=== PATIENT | male | born 1940 | race Caucasian/White ===

== ENCOUNTER 2017-05-12 09:18 | Outpatient (CLI) | payer MEDICARE ==
--- NOTE | ~2017-05-12 | HEMODYNAMI ---
PATIENT:ALMA GRANT CHRISTIAN MEDICAL RECORD: [id number] : 38 LOCATION:[facility] ADMISSION DATE: 05/12/17 Generatedon:05/12/201712:40 Patient name: ALMA GRANT Patient #: [id number] SSN: : [id number] Date of study: 05/12/2017 Page: Of Hemodynamic Procedure Report Patient Data Patient Demographics Procedure consent was obtained First Name: ALMA Gender: Male Last Name: JUANITA : 1940 [facility] Initial: CHRISTIAN Age: 77 year(s) Patient #: [id number] Race: Additional ID: [id number] Contact details Address: [address] [place] [address] State: [place] City: [place] Zip code: [address] Past Medical History History of disease Date Diagnosis Comments CAD CHF->RODRÍGUEZ Allergies: No known allergies Admission Admission Data Admission Date: 05/12/2017 Admission Time: 9:18 Procedure Procedure Types Cath Procedure Diagnostic Procedure LHC LHC w/Coronaries PCI Procedure SVG-BMS/JUICE Initial Procedure Description Procedure Date Procedure Date: 05/12/2017 Procedure Start Time: 12:11 Procedure End Time: 12:39 Procedure Staff Name Function Clyde Styles MD Performing Physician Edgar Banuelos RT Scrub Ab Quinn RN Nurse Gabriel Phipps RT Monitor Procedure Data Cath Procedure Fluoroscopy Diagnostic fluoroscopy Total fluoroscopy Time: time: 10.2 min 10.2 min Diagnostic fluoroscopy Total fluoroscopy dose: dose: 1083 mGy 1083 mGy Contrast Material Contrast Material Type Amount (ml) Isovue 300 127 Entry Location Entry Primary Successful Side Size Upsize Upsize Entry Closure Succes sful Closure Location (Fr) 1 (Fr) 2 (Fr) Remarks Device Remarks Femoral Right 5 Fr 6 Fr Exoseal artery Short Estimated blood loss: 10 ml Diagnostic catheters Device Type Used For End Catheter Placement Cordis 5Fr Pigtail Procedure Catheter (MP) Cordis 5Fr JL 4.0 Procedure Catheter (MP) Cordis 5Fr 3DRC Catheter Procedure (MP) Diagnostic Infinity 5Fr Procedure AR 2 MOD catheter Procedure Medications Medication Administration Route Dosage Oxygen NC 2 l/min Lidocaine 2% added to field 20 Heparin Flush Bag added to field 2 bags (1000units/500ml NS) 0.9% NaCl I.V. 100 ml/hr Versed I.V. 1 mg Fentanyl I.V. 50 mcg Versed I.V. 1 mg Fentanyl I.V. 50 mcg Heparin Bolus I.V. 4000 units Hemodynamics Rest Heart Rate: 59 (bpm) Pressure Samples Time Site Value (mmHg) Purpose Heart Use Rate(bpm) 12:11 LV 126/27,27 Snapshot 66 Snapshots Pre Cath Intra NCS Post Cath Vital Signs Time Heart Resp SPO2 NIBP (mmHg) Rhythm Pain Sedation Rate (ipm) (%) Status Level (bpm) 12:07:17 65 21 94 134/67(114) NSR 0 (11) 10(A) , No pain 12:13:16 64 19 92 134/74(113) NSR 0 (11) 10(A) , No pain 12:17:28 68 16 94 135/71(109) NSR 0 (11) 9(A) , No pain 12:21:44 68 15 94 131/57(108) NSR 0 (11) 9(A) , No pain 12:27:14 65 15 95 139/57(106) NSR 0 (11) 9(A) , No pain 12:31:30 65 15 97 137/65(114) NSR 0 (11) 9(A) , No pain 12:34:53 63 18 96 130/64(115) NSR 0 (11) 10(A) , No pain 12:39:06 63 23 98 135/62(113) NSR 0 (11) 10(A) , No pain Medications Time Medication Route Dose Verified Delivered Reason Notes Effectiveness by by 12:04:31 Oxygen NC 2 Clyde Berger used for l/min Jensen Quinn RN procedure 12:04:39 Lidocaine 2% added 20ml Clyde Tang for local to vial Jensen Styles MD anesthetic field 12:04:45 Heparin Flush added 2 Clyde Tang used for Bag to bags Jensen Styles MD procedure (1000units/500ml field NS) 12:04:53 0.9% NaCl I.V. 100 Clyde Buffie Per physician ml/hr Jensen Quinn RN 12:09:14 Versed I.V. 1 mg Clyde Berger for sedation Jensen Quinn RN 12:09:19 Fentanyl I.V. 50 Clyde Berger for sedation mcg Jensen Quinn RN 12:16:06 Versed I.V. 1 mg Clyde Berger for sedation Jensen Quinn RN 12:16:14 Fentanyl I.V. 50 Clyde Berger for sedation mcg Jensen Quinn RN 12:17:59 Heparin Bolus I.V. 4000 Clyde Berger for verifi ed units Jensen Quinn RN anticoagulation with dr styles Procedure Log Time Note 11:49:05 Informed consent obtained and on chart 11:49:10 Diagnostic Cath Status : Elective 11:50:01 Gabriel Phipps RT(R) (CV) sent for patient. Start room use. 11:50:03 Time tracking: Regular hours 11:50:08 Plan of Care:Hemodynamics will remain stable., Cardiac rhythm will remain stable., Comfort level will be maintained., Respiratory function will remain adequate., Patient/ family verbilizes understanding of procedure., Procedure tolerated without complication., Recovers from procedure without complications.. 12:01:27 Warm blankets applied, and fouzia hugger turned on for patient comfort. 12:01:28 Correct patient and procedure confirmed by team. 12:01:39 ECG and BP/O2 sat monitors applied to patient. 12:02:28 Baseline sample Acquired. 12:02:41 Rhythm: sinus rhythm 12:02:52 Full Disclosure recording started 12:04:05 H&P Date Dictated: 05/11/2017 Within 30 days and on chart., H&P Addendum completed by physician on day of procedure. (MUST COMPLETE FOR ALL OUTPATIENTS). 12:04:07 Pre-procedure instructions explained to patient. 12:04:07 Pre-op teaching completed and patient verbalized understanding. 12:04:11 Family in waiting room. 12:04:13 Patient NPO since Midnight. 12:04:31 Oxygen 2 l/min NC was administered by Ab Quinn RN; used for procedure; 12:04:39 Lidocaine 2% 20ml vial added to field was administered by Clyde Styles MD; for local anesthetic; 12:04:45 Heparin Flush Bag (1000units/500ml NS) 2 bags added to field was administered by Clyde Styles MD; used for procedure; 12:04:53 0.9% NaCl 100 ml/hr I.V. was administered by Ab Quinn RN; Per physician; 12:06:05 Patient allergic to No known allergies 12:06:08 Is patient on blood thinner?Yes 12:06:13 ACC The patient was administered the following blood thiners within the last 24 hours: ACCPlavix 12:06:16 Patient diabetic? No. 12:06:19 ----Pre-sedation anethsthesia assessment.---- 12:06:21 Previous problem with sedation/anesthesia? No ? 12:06:23 Snore? Yes 12:06:25 Sleep apnea? No 12:06:26 Deviated septum? No 12:06:27 Opens mouth fully? Yes 12:06:28 Sticks out tongue? Yes 12:06:32 Airway obstruction? No ? 12:06:41 Dentures? Yes PARTIAL IN 12:06:45 Pre procedure: right dorsailis pedis pulse 1+ Palpable, but thready & weak; easily obliterated 12:07:00 IV patent on arrival in left hand with 0.9% NaCl at [facility]. 12:07:56 Right groin area was prepped with chlora-prep and draped in sterile fashion 12:08:07 Alarms reviewed by R. N. 12:08:07 Sharps counted by scrub and verified by R.N. 12:08:09 Physician arrived 12:08:09 --------ALL STOP TIME OUT------ 12:08:10 Final Timeout: patient, procedure, and site verified with staff and physician. All members of the team are in agreement. 12:08:12 Right groin site verified by team. 12:08:15 Physical assessment completed. ASA score P 2 - A patient with mild systemic disease as per Clyde Styles MD. 12:08:19 Sedation plan: IV Moderate Sedation Versed, Fentanyl 12:08:36 Use device set Femoral Dx 12:08:37 Acist Syringe opened to sterile field. 12:08:38 Bag Decanter opened to sterile field. 12:08:39 Medline Cath Pack opened to sterile field. 12:08:39 Terumo 5Fr Cecilia Sheath opened to sterile field. 12:08:40 St Feliz 260cm J .035 wire opened to sterile field. 12:08:41 Acist Hand Control opened to sterile field. 12:08:42 Acist Manifold opened to sterile field. 12:08:43 Diagnostic Infinity 5Fr Multipack catheter opened to sterile field. 12:08:45 Tegaderm 4 x 4 opened to sterile field. 12:08:48 Zero performed for pressure channel P1 12::14 Versed 1 mg I.V. was administered by Ab Quinn RN; for sedation; 12::16 Local anesthetic to right femoral artery with Lidocaine 2% by Clyde Styles MD.INITIAL ACCESS ONLY 12:09:19 Fentanyl 50 mcg I.V. was administered by Ab Quinn RN; for sedation; 12:09:30 A 5 Fr sheath was inserted into the Right Femoral artery 12:10:00 Vital chart was started 12:10:33 A Cordis 5Fr Pigtail Catheter (MP) was advanced over the wire and used for Procedure. 12:11:17 Procedure started. 12:11:28 LV hemodynamics recorded. 12:11:30 LV gram done using BAKER 12:11:35 EF : 20 % 12:11:36 Catheter removed. 12:11:58 A Cordis 5Fr JL 4.0 Catheter (MP) was advanced over the wire and used for Procedure. 12:12:16 LCA angiography performed. 12:12:25 Catheter removed. 12:13:19 A Cordis 5Fr 3DRC Catheter (MP) was advanced over the wire and used for Procedure. 12:13:35 SHAFER to LAD angiography performed. 12:14:00 RCA angiography performed. 12:14:10 Catheter removed. 12:14:42 A Diagnostic Infinity 5Fr AR 2 MOD catheter was advanced over the wire and used for Procedure. 12:15:06 SVG to RCA angiography performed. 12:16:06 Versed 1 mg I.V. was administered by Ab Quinn RN; for sedation; 12:16:14 Fentanyl 50 mcg I.V. was administered by Ab Quinn RN; for sedation; 12:16:20 SVG to Diag angiography performed. 12:16:42 SVG TO DIAG AND OM 12:17:28 Catheter removed. 12:17:31 Proceeding to intervention. 12:17:53 Terumo 6Fr Cecilia Sheath opened to sterile field. 12:17:54 Sandoval Whisper J 300cm 0.014 guide wire opened to sterile field. 12:17:55 Handy BasixCompak Inflation Kit opened to sterile field. 12:17:59 Heparin Bolus 4000 units I.V. was administered by Ab Quinn RN; for anticoagulation; verified with dr styles 12:18:17 Procedure type changed to Cath procedure, Diagnostic procedure, LHC, LHC w/Coronaries, PCI procedure, SVG-BMS/JUICE Initial 12:18:28 Sheath upsized to a 6 Fr Short. 12:18:53 Medtronic Launcher 6Fr AR 2.0 guide catheter opened to sterile field. 12:19:03 6 Fr AR 2 guide catheter was inserted over the wire 12:19:28 WHISPER wire advanced. 12:19:35 Wire advanced across lesion. 12:23:09 Wire removed. 12:23:19 Guide Catheter removed. unable to get back-up support 12:23:32 Medtronic Launcher 6Fr AR 1.0 guide catheter opened to sterile field. 12:23:40 6 Fr AR 1 guide catheter was inserted over the wire 12:25:21 Wire advanced across lesion. 12:27:56 Inflation number: 1 A NC Euphora 4.0 x 15 balloon was prepped and advanced across the Aorta Left -> 1st Diag, then inflated to 17 CHEL for 0:10 (min:sec). 12:30:38 Balloon removed over the wire. 12:30:39 Wire removed. 12:30:40 Guide catheter removed. 12:31:12 Cordis 6Fr Exoseal opened to sterile field. 12:31:23 Sheath removed intact; hemostasis achieved with Exoseal to the Right Femoral artery. 12:31:25 Procedure ended.(Physican Out) 12:31:42 Fluoroscopy time 10.20 minutes. 12::48 Fluoroscopy dose: 1083 mGy 12:31:48 Flurop Dose total: 1083 12:31:55 Contrast amount:Isovue 300 127ml. 12:32:11 Sharps counted by scrub and verified by R.N. 12:38:12 Insertion/operative site no bleeding no hematoma. 12:38:16 Post-op/insertion site Right Femoral artery dressed using a 4 x 4 and Tegaderm. 12:38:33 Post right femoral artery:stable 12:38:36 Post Procedure Pulses reassessed and unchanged 12:38:43 Post-procedure physical assessment completed. ASA score P 2 - A patient with mild systemic disease as per Clyde Styles MD. 12:38:51 Post procedure rhythm: sinus rhythm 12:38:54 Estimated blood loss: 10 ml 12:38:55 Post procedure instruction explained to patient.Patient verbalizes understanding. 12:38:56 Patient needs reinforcement of post procedure teaching. 12:38:57 Procedure and supply charges have been captured, reviewed, submitted and are correct. 12:38:59 Vital chart was stopped 12:39:00 See physician's report for complete and final results. 12:39:02 Report given to PCU. 12:39:08 Patient transfered to PCU with Bed. 12:39:16 Procedure ended. 12:39:16 Full Disclosure recording stopped 12:39:22 End room use (Document Last) Intervention Summary Intervention Notes Time ActionType Lesion and Equipment Action# Pressure Duration Attributes Used 12:27:56 Inflate Aorta Left NC 1 17 00:10 balloon -> 1st Diag Euphora 4.0 x 15 balloon Device Usage Item Name Manufacture Quantity Catalog Hospital Part Current Minimal Lot# / Number Charge Number Stock Stock Serial# Code Acist Acist 1 [id number] [id number] 063314 982260 20 Syringe Medical Systems Inc Bag Microtek 1 [id number] [id number] 35468 297446 5 Decanter Medical Inc. Medline Cardinal 1 [id number] 148986 72756 987911 5 Cath Pack Health Terumo 5Fr Terumo 1 [id number] 135599 241574 214056 [address] [facility] St Feliz 1 755986 857198 854227 287479 30 260cm J .035 wire Acist Hand Acist 1 55772 065673 803648 412093 5 Control Medical Systems Inc Acist Acist 1 12447 652460 839851 519427 5 Manifold Medical Systems Inc Diagnostic Cardinal 1 [id number] 159712 67345 729069 30 PageBitesity [place] 5Fr Multipack catheter Tegaderm 4 3M 1 1626W 183482 371048 573490 5 x 4 Cordis 5Fr Cardinal 1 082249 5 Pigtail Health Catheter (MP) Cordis 5Fr Cardinal 1 304849 5 JL 4.0 Health Catheter (MP) Cordis 5Fr Cardinal 1 686440 5 3DRC Health Catheter (MP) Diagnostic Cardinal 1 [id number] 691405 521696 751973 20 StoredIQ Health 5Fr AR 2 MOD catheter Terumo 6Fr Terumo 1 [id number] 343369 483320 354062 40 Cecilia Sheath Sandoval Sandoval 1 [id number] 581519 691598 665580 5 isper J Vascular 300cm 0.014 guide wire Merit Merit 1 [id number] 773234 198273 185154 15 Prolong PharmaceuticalsixIntellihot Green TechnologiespaAlphaSmart Medical Inflation Kit Medtronic Medtronic 1 [id number] 789784 76374 210024 1 Launcher 6Fr AR 2.0 guide catheter Medtronic Medtronic 1 [id number] 605931 33396 194654 1 Launcher 6Fr AR 1.0 guide catheter NC Euphora Medtronic 1 [id number] 672941 793322 632496 1 4.0 x 15 balloon Cordis 6Fr Cardinal 1 [id number] 000946 415657 867900 10 Wheelz Signature Audit [place] Stage Time Signature Unsigned Intra-Procedure 05/12/2017 Gabriel Phipps 12:40:21 PM RT(R) (CV) Signatures Monitor : Gabriel Phipps RT Signature : Date : Time : [id number] [place] [address]
--- NOTE | ~2017-05-12 | HEMODYNAMI ---
PATIENT:ALMA GRANT CHRISTIAN MEDICAL RECORD: [id number] : 38 [id number] ADMISSION DATE: 05/12/17 Generatedon:05/13/201714:29 Patient name: ALMA GRANT Patient #: [id number] SSN: : [id number] Date of study: 05/13/2017 Page: Of Hemodynamic Procedure Report Patient Data Patient Demographics Procedure consent was obtained First Name: ALMA Gender: Male Last Name: JUANITA : 1940 [facility] Initial: CHRISTIAN Age: 77 year(s) Patient #: [id number] Race: Additional ID: [id number] Contact details [address]: [address] [place] [address] State: [place] City: [place] Zip code: [address] Past Medical History History of disease Date Diagnosis Comments CAD CHF->RODRÍGUEZ Allergies: No known allergies Admission Admission Data Admission Date: 05/12/2017 Admission Time: 9:18 Room #: D.2120 Lab Results Lab Result Date: 05/13/2017 Lab Result Time: 0:00 Biochemistry Name Units Result Min Max BUN mg/dl 15 --(--*-)-- 7 18 Creatinine mg/dl 0.8 --(-*--)-- 0.6 1.3 CBC Name Units Result Min Max Hemoglobin g/dl 15.8 --(--*-)-- 13.5 17.5 Procedure Procedure Types Cath Procedure PCI Procedure SVG-BMS/JUICE Initial Miscellaneous Procedures Moderate Sedation up to 15 minutes Procedure Description Procedure Date Procedure Date: 05/13/2017 Procedure Start Time: 14:18 Procedure End Time: 14:28 Procedure Staff Name Function Clyde Styles MD Performing Physician Myrtle Thayer RT Scrub Eduard Whitehead RN Nurse Berto Tejeda RT Monitor Procedure Data Cath Procedure Fluoroscopy Diagnostic fluoroscopy Total fluoroscopy Time: 2.8 time: 2.8 min min Diagnostic fluoroscopy Total fluoroscopy dose: 127 dose: 127 mGy mGy Contrast Material Contrast Material Type Amount (ml) Isovue 300 48 Entry Location Entry Primary Successful Side Size Upsize Upsize Entry Closure Succes sful Closure Location (Fr) 1 (Fr) 2 (Fr) Remarks Device Remarks Femoral Left 6 Fr Exoseal artery Short Estimated blood loss: 10 ml Procedure Complications No complications Procedure Medications Medication Administration Route Dosage Oxygen NC 2 l/min Heparin Flush Bag added to field 2 bags (1000units/500ml NS) 0.9% NaCl I.V. 100 ml/hr Plavix P.O. 75 mg Fentanyl I.V. 50 mcg Versed I.V. 1 mg Heparin Bolus I.V. 4000 units Fentanyl I.V. 50 mcg Versed I.V. 1 mg Hemodynamics Rest HGB: 15.8 (g/dl) Heart Rate: 59 (bpm) Snapshots Pre Cath Intra NCS Post Cath Vital Signs Time Heart Resp SPO2 etCO2 SF4rlho NIBP (mmHg) Rhythm Pain Sedation Rate (ipm) (%) (mmHg) (mmHg) Status Level (bpm) 14:07:32 61 18 98 0 0 171/82(165) NSR 0 (11) 10(A) , No pain 14:12:13 61 19 97 0 0 175/79(132) NSR 0 (11) 10(A) , No pain 14:16:56 63 17 95 0 0 153/71(118) NSR 0 (11) 10(A) , No pain 14:21:34 65 18 96 0 0 161/65(113) NSR 0 (11) 9(A) , No pain 14:26:15 76 19 93 0 0 166/76(133) NSR 0 (11) 9(A) , No pain Medications Time Medication Route Dose Verified Delivered Reason Notes Effectiveness by by 14:11:59 Oxygen NC 2 Clyde Chapa Per physician l/min Jensen Whitehead RN 14:12:09 Heparin Flush added 2 Clyde Chapa used for Bag to bags Jensen Whitehead flat folding machine operator (1000units/500ml field NS) 14:12:19 0.9% NaCl I.V. 100 Clyde Chapa Per physician ml/hr Jensen Whitehead RN 14:13:55 Plavix P.O. 75 mg Clyde Chapa for Jensen Whitehead RN antiplatelet therapy 14:18:00 Fentanyl I.V. 50 Clyde Chapa for sedation mcg Jensen Whitehead RN 14:18:08 Versed I.V. 1 mg Clyde Chapa for sedation Jensen Whitehead RN 14:19:08 Heparin Bolus I.V. 4000 Clyde Chapa for units Jensen Whitehead RN anticoagulation 14:21:52 Fentanyl I.V. 50 Clyde Chapa for sedation mcg Jensen Whitehead RN 14:21:56 Versed I.V. 1 mg Clyde Chapa for sedation Jensen Whitehead RN Procedure Log Time Note 13:47:51 Berto Tejeda RT(R) sent for patient. Start room use. 13:47:59 Time tracking: Regular hours 13:48:05 Plan of Care:Hemodynamics will remain stable., Cardiac rhythm will remain stable., Comfort level will be maintained., Respiratory function will remain adequate., Patient/ family verbilizes understanding of procedure., Procedure tolerated without complication., Recovers from procedure without complications.. 13:48:49 H&P Date Dictated: 05/12/2017 Within 30 days and on chart., H&P Addendum completed by physician on day of procedure. (MUST COMPLETE FOR ALL OUTPATIENTS). 13:51:23 Lab Result : Creatinine 0.8 mg/dl 13:51:23 Lab Result : BUN 15 mg/dl 13:51:23 Lab Result : Hemoglobin 15.8 g/dl 14:01:10 Patient received from Med II to CCL 1 Alert and oriented. Tansferred to table in Supine position. 14:01:11 Warm blankets applied, and fouzia hugger turned on for patient comfort. 14:01:11 Correct patient and procedure confirmed by team. 14:01:13 Signed procedure consent form obtained from patient. 14:01:14 ECG and BP/O2 sat monitors applied to patient. 14:05:57 Vital chart was started 14:05:58 Baseline sample Acquired. 14:06:03 Rhythm: sinus rhythm 14:06:05 Full Disclosure recording started 14:11:50 Pre-procedure instructions explained to patient. 14:11:52 Pre-op teaching completed and patient verbalized understanding. 14:11:55 Family in patients room. 14:11:57 Patient NPO since Midnight. 14:11:58 Is the patient allergic to Iodine/contrast media? No. 14:11:59 Oxygen 2 l/min NC was administered by Eduard Whitehead RN; Per physician; 14:12:00 Is patient on blood thinner?Yes 14:12:02 ACC The patient was administered the following blood thiners within the last 24 hours: ACCPlavix 14:12:04 Patient diabetic? No. 14:12:09 Heparin Flush Bag (1000units/500ml NS) 2 bags added to field was administered by Eduard Whitehead RN; used for procedure; 14:12:09 Previous problem with sedation/anesthesia? No ? 14:12:11 Snore? Yes 14:12:12 Sleep apnea? No 14:12:13 Deviated septum? No 14:12:14 Opens mouth fully? Yes 14:12:15 Sticks out tongue? Yes 14:12:17 Airway obstruction? No ? 14:12:19 0.9% NaCl 100 ml/hr I.V. was administered by Eduard Whitehead RN; Per physician; 14:12:22 Dentures? Yes IN TIGHT 14:12:25 Pre procedure: left dorsailis pedis pulse 1+ Palpable, but thready & weak; easily obliterated 14:12:27 Patient pain scale 0/10 ?. 14:12:32 IV patent on arrival in left forearm with 0.9% NaCl at O. 14:12:34 Lab results completed and on chart. 14:12:44 Left groin area was prepped with chlora-prep and draped in sterile fashion 14:12:47 Alarms reviewed by R. N. 14:12:48 Sharps counted by scrub and verified by R.N. 14:13:55 Plavix 75 mg P.O. was administered by Eduard Whitehead RN; for antiplatelet therapy; 14:14:13 Physician paged 14:17:44 --------ALL STOP TIME OUT------ 14:17:45 Final Timeout: patient, procedure, and site verified with staff and physician. All members of the team are in agreement. 14:17:48 Left groin site verified by team. 14:17:50 Physical assessment completed. ASA score P 2 - A patient with mild systemic disease as per Clyde Styles MD. 14:17:53 Sedation plan: IV Moderate Sedation Versed, Fentanyl 14:18:00 Fentanyl 50 mcg I.V. was administered by Eduard Whitehead RN; for sedation; 14:18:08 Versed 1 mg I.V. was administered by Eduard Whitehead RN; for sedation; 14:18:09 Use device set Femoral PCI 14:18:10 Tegaderm 4 x 4 opened to sterile field. 14:18:11 Acist Manifold opened to sterile field. 14:18:13 Acist Syringe opened to sterile field. 14:18:13 Acist Hand Control opened to sterile field. 14:18:13 Bag Decanter opened to sterile field. 14:18:14 Medline Cath Pack opened to sterile field. 14:18:14 Terumo 6Fr [place] Sheath opened to sterile field. 14:18:14 St Feliz 260cm J .035 wire opened to sterile field. 14:18:15 [employer] BasixCompak Inflation Kit opened to sterile field. 14:18:26 Sandoval Whisper J 300cm 0.014 guide wire opened to sterile field. 14:18:26 Joognu Launcher 6Fr AR 2.0 guide catheter opened to sterile field. 14:18:30 Procedure started. 14:18:35 Local anesthetic to left femerol artery with Lidocaine 2% by Clyde Styles MD.INITIAL ACCESS ONLY 14:18:45 A 6 Fr Short sheath was inserted into the Left Femoral artery 14:18:55 Study PCI Site: Vein Graft dRCA has 80% stenosis. 14:18:58 ACC Pre-intervention ROSSY Flow is 3. 14:19:03 6 Fr AR 2 guide catheter was inserted over the wire 14:19:08 Heparin Bolus 4000 units I.V. was administered by Eduard Whitehead RN; for anticoagulation; 14:21:09 Whisper wire advanced. 14:21:52 Fentanyl 50 mcg I.V. was administered by Eduard Whitehead RN; for sedation; 14:21:56 Versed 1 mg I.V. was administered by Eduard Whitehead RN; for sedation; 14:23:37 Wire advanced across lesion. 14:24:02 Inflation Number: 1 A Shamar OTW 3.0 x 26 stent was prepped and advanced across the Aorta Right -> Dist RCA. The stent was deployed at 15 CHEL for 0:10 (min:sec). 14:24:31 ACC Post-intervention ROSSY Flow is 3. 14:24:32 Stent catheter was removed intact over wire. 14::33 Wire removed. 14:24:33 Guide catheter removed. 14:24:54 Cordis 6Fr Exoseal opened to sterile field. 14:25:15 Sheath removed intact; hemostasis achieved with Exoseal to the Left Femoral artery. 14:25:18 Procedure ended.(Physican Out) ::29 Fluoroscopy time 02.80 minutes. 14::33 Flurop Dose total: 127 14::33 Fluoroscopy dose: 127 mGy 14:27:46 Contrast amount:Isovue 300 48ml. 14:27:48 Sharps counted by scrub and verified by R.N. 14:27:49 Insertion/operative site no bleeding no hematoma. 14:27:54 Post-op/insertion site Left Femoral artery dressed using a 4 x 4 and Tegaderm. 14:27:55 Post Procedure Pulses reassessed and unchanged 14:27:59 Post-procedure physical assessment completed. ASA score P 2 - A patient with mild systemic disease as per Clyde Styles MD. 14:28:02 Post procedure rhythm: unchanged. 14:28:05 Estimated blood loss: 10 ml 14:28:07 Post procedure instruction explained to patient.Patient verbalizes understanding. 14:28:08 Patient needs reinforcement of post procedure teaching. 14:28:20 Procedure and supply charges have been captured, reviewed, submitted and are correct. 14:28:24 Procedure Complication : No complications 14:28:48 Vital chart was stopped 14:28:49 See physician's report for complete and final results. 14:28:51 Report given to PCU. 14:28:55 Patient transfered to PCU with Bed. 14:28:58 Procedure ended. 14:28:58 Full Disclosure recording stopped 14:29:00 End room use (Document Last) Intervention Summary Intervention Notes Time ActionType Lesion and Equipment Action# Pressure Duration Attributes Used 14:24:02 Place stent Aorta Right Shamar OTW 1 15 00:10 -> Dist RCA 3.0 x 26 stent Device Usage Item Name Manufacture Quantity Catalog Hospital Part Current Minima l Lot# / Number Charge Number Stock Stock Serial# Code Tegaderm 4 3M 1 [id number] 424398 622129 118013 5 x 4 Acist Acist 1 41047 495476 094663 791699 5 Manifold Medical Systems Inc Acist Acist 1 44403 068694 063598 223288 20 Syringe Medical Systems Inc Acist Hand Acist 1 70057 671919 678399 518663 5 Control Medical Systems Inc Bag Microtek 1 2002S 448493 90349 412947 5 Decanter Medical Inc. Medline Cardinal 1 [id number] 341258 70005 298637 5 Cath Pack Health Terumo 6Fr Terumo 1 [id number] 486732 856958 626768 [address] [place] [address] Feliz 1 010377 722602 057273 266244 30 260cm J .035 wire Merit Merit 1 [id number] 786762 194125 065133 15 BasixPAK Medical Inflation Kit Sandoval Sandoval 1 [id number] 659903 544415 204056 5 Whisper J Vascular 300cm 0.014 guide wire Medtronic Medtronic 1 [id number] 075615 72099 704074 1 Launcher 6Fr AR 2.0 guide catheter Shamar OTW Medtronic 1 [id number] 258823 3348728 583134 5 [id number] 3.0 x 26 stent Cordis 6Fr Cardinal 1 EX600 658004 223780 814277 10 [facility] Chief Trunk Signature Audit [place] Stage Time Signature Unsigned Intra-Procedure 05/13/2017 Berto Tejeda 2:29:21 PM RT(R) Signatures Monitor : Berto Tejeda RT Signature : Date : Time : [facility] [address] [place] [address]
[~2017-05-12 09:18] MED LIST: AMOXICILLIN500 M1 PO; ATARAX 25 MG TA25 MG PO; BAYER CHEWABLE81 MG PO; BIAXIN 500 MG500 MG PO; CORDARONE200 MG PO; EFFIENT10 MG PO; ISOSORBIDE MONO30 M1 PO; LIPITOR40 MG PO; PLAVIX75 MG PO; PRAVACHOL40 MG PO; PRILOSEC20 MG PO; PROAIR HFA8.5 GM; PROAIR HFA8.5 GM INH; ZEBETA5 MG; ZEBETA5 MG PO; [UNRECOGNIZED DRUG - OTHER] PO
[2017-05-12] MEDS ORDERED: ZYRTEC10 MG PO (09:41)
[2017-05-12] MEDS ORDERED: LIPITOR40 MG PO (09:41)
[2017-05-12] MEDS ORDERED: ISOSORBIDE DINI30 MG PO (09:42)
[2017-05-12] MEDS ORDERED: ZANTAC300 MG PO (09:43)
[2017-05-12] MEDS ORDERED: PLAVIX75 MG PO (09:45)
[2017-05-12 09:46] VITALS: BP 137/57; BMI 21.5
[2017-05-12 10:00] LABS: BASOPHILS 0.5 % (0-2); HEMATOCRIT 46.6 % (42.0-54.0); HEMOGLOBIN 15.8 g/dL (13.5-17.5); IMMATURE GRANULOCYTES 0.2 % (0-5); LYMPHOCYTES 12.1 % (15-50); MCH 30.3 pg (26.0-34.0); MCHC 33.9 g/dL (31.0-37.0); MCV 89.4 fL (80.0-100.0); MEAN PLATELET VOLUME 9.5 fL (7.4-10.4); MONOCYTES 8.9 % (2-11); NEUTROPHILS 76.3 % (40-80); RBC 5.21 10x6/uL (4.20-6.10); RDW 15.2 % (11.5-14.5); WBC 10.9 10x3/uL (4.8-10.8)
[2017-05-12 10:01] LABS: PLATELET COUNT 212 10x3/uL (130-400)
[2017-05-12 10:12] LABS: CALC OSMOLALITY 270 mosm/kg (275-300); CARBON DIOXIDE 30.8 mmol/L (21.0-32.0); CHLORIDE - SERUM 101 mmol/L (98-107); CREATININE - SERUM 0.8 mg/dL (0.6-1.3); GLUCOSE 95 mg/dL (74-106); POTASSIUM - SERUM 3.9 mmol/L (3.5-5.1); SODIUM 135 mmol/L (136-145); UREA NITROGEN 15 mg/dL (7-18); eGFR NON AFRICAN AMERICAN > 90 mL/min (90-120)
--- NOTE | 2017-05-12 13:03 | NUR ---
TRANSFER FROM ELECTRIC MELT OPERATOR. VS WNL. RIGHT GROIN STABLE WITHOUT BLEEDING OR HEMATOMA NOTED. WILL MONITOR.
[2017-05-12 13:08] VITALS: BP 160/74; BMI 21.5
[2017-05-12 15:37] VITALS: BP 136/62
--- NOTE | 2017-05-12 16:51 | NUR ---
BED REST UP. GROIN STABLE.
--- NOTE | 2017-05-12 19:35 | NUR ---
RESUMED CARE OF PT, KANIKA SIMS BED RESPIRATIONS EVEN AND UNLABORED ON 2LPM VIA NC. 55 SB WITH PVCS. RIGHT GROIN CATH SITE WNL, PEDAL PULSE PALPABLE. NO NEEDS AT THIS TIME, FAMILY AT THE BEDSIDE. CALL LIGHT IN REACH. WILL CONTINUE TO MONITOR. SEE NURSE ASSESSMENT.
[2017-05-12 20:19] VITALS: BP 143/58
--- NOTE | 2017-05-13 03:41 | NUR ---
CALL LIGHT IN REACH, WILL CONTINUE WITH PLAN OF CARE.
[2017-05-13 04:44] VITALS: BP 144/42
--- NOTE | 2017-05-13 05:19 | NUR ---
CONSENTS OBTAINED FOR LHC TODAY. REMAINS NPO AT THIS TIME, CALL LIGHT IN REACH. WILL CONTINUE TO MONITOR.
[2017-05-13 08:46] VITALS: BP 157/71
[2017-05-13 12:12] VITALS: BP 153/70
--- NOTE | 2017-05-13 13:09 | OP ---
PATIENT NAME: ALMA GRANT CHRISTIAN MEDICAL RECORD: [id number] :38 LOCATION:D.M2 D.2120 ADMISSION DATE: SURGEON: MILVIA CAMPBELL MD DATE OF OPERATION: 05/12/2017 PROCEDURES: 1. PTCA stent to left circumflex vein graft. 2. Left heart catheterization. 3. Selective coronary angiography. 4. Vein graft angiography. 5. SHAFER angiography. 6. Left ventriculogram. INDICATION: Angina and coronary artery disease. PROCEDURE IN DETAIL: After informed consent was obtained and after detailed explanation of risks, benefits as well as alternative therapies, the patient elected to proceed with angiogram and angioplasty. The right femoral area was prepped and draped in normal sterile fashion. The right femoral artery was cannulated via modified Seldinger technique with placement of 6-Luxembourgish sheath. All catheters exchanged through this sheath. FINDINGS: The left ventriculogram was performed in standard 30-degree BAKER view, reveals global hypokinesis throughout all segments. Overall ejection fraction 25%. SELECTIVE CORONARY ANGIOGRAPHY: 1. Left main showed no significant angiographic disease. 2. Left anterior descending is totally occluded. 3. Left circumflex is totally occluded. 4. Right coronary is totally occluded. 5. SHAFER to the LAD is widely patent. Distal LAD is widely patent. 6. There is a vein graft. It starts out as a single vein graft that is stented at the ostium. It then splits into a split graft going to the LAD, diagonal, and the left circumflex. There is a stent at the ostium with at least 70% in-stent restenosis and pressure damping with the catheter. 7. The right coronary vein graft is patent; however, there is 80% stenosis mid vessel. PROCEDURE: PTCA of the in-stent restenosis of the vein graft to the circumflex and diagonal. The balloon used was a 4.0 high-pressure Euphora taken to 23 atmospheres. Result was 0% residual stenosis. OVERALL IMPRESSION: Successful high-pressure PTCA for in-stent restenosis of the vein graft to the circumflex and diagonal. This is a split graft, starting out as a single with the stent at the ostium with the in-stent restenosis, 70% to 0% residual stenosis. TRANSINT:[id number] Voice Confirmation ID: [id number] DOCUMENT ID: [id number] OPERATIVE REPORT [id number] ALMA GRANT MILVIA CAMPBELL MD at 1309 CC: [id number] DICTATION DATE: 05/12/17 1235 FLASH RANGING CREWMEMBER: 05/12/17 1412 [facility] [address] [place] [address]
--- NOTE | 2017-05-13 13:57 | NUR ---
PRE-OPS GIVEN. TO PROPELLER LAYOUT WORKER BY BED.
--- NOTE | 2017-05-13 14:48 | NUR ---
BACK FROM MEMBERSHIP CORRESPONDENT. LEFT GROIN STABLE WITHOUT BLEEDING OR HEMATOMA NOTED. WILL MONITOR.
[2017-05-13 15:34] VITALS: BP 165/78
--- NOTE | 2017-05-13 18:12 | NUR ---
BED REST UP. GROIN STABLE.
--- NOTE | 2017-05-13 18:20 | NUR ---
IV AND TELEMETRY DCD. DC PLANS GIVEN. UNDERSTANDING VOICED. ESCORTED TO CAR BY W/C.
--- NOTE | 2017-06-03 16:56 | OP ---
PATIENT NAME: ALMA GRANT MEDICAL RECORD: [id number] :38 LOCATION:D.CAT ADMISSION DATE: SURGEON: MILVIA CAMPBELL MD DATE OF OPERATION: 05/13/2017 DATE OF SERVICE: 05/13/2017 PROCEDURES: 1. PTCA stent vein graft to RCA. 2. Selective vein graft and coronary angiography. INDICATION: Angina and coronary artery disease. PROCEDURE IN DETAIL: After informed consent was obtained and after a detailed explanation of the risks, benefits as well as alternative therapies, the patient elected to proceed with angiogram and angioplasty. The left femoral area was prepped and draped in normal sterile fashion. Left femoral artery was cannulated via modified Seldinger technique with placement of 6-Estonian sheath. All catheters exchanged through this sheath. FINDINGS: The right coronary vein graft has 80% stenosis throughout the mid portion vessel. This was addressed as a 3.0 x 26 mm Shamar stent. Result was 0% residual stenosis. OVERALL IMPRESSION: Successful percutaneous transluminal coronary angioplasty stent of the vein graft to the right coronary artery going from 80% initial stenosis to 0% residual stenosis. TRANSINT:[id number] Voice Confirmation ID: [id number] DOCUMENT ID: [id number] MILVIA CAMPBELL MD at 1656 CC: [id number] DICTATION DATE: 05/13/17 1429 CAUSTIC ROOM OPERATOR: 05/13/17 1537 DEP CLI 05/13/17 [place] [id number]
--- NOTE | 2017-06-03 16:56 | DS ---
PATIENT:ALMA GRANT CHRISTIAN :38 MEDICAL RECORD: [id number] DISCHARGE SUMMARY ADMISSION DATE: 05/12/17 DISCHARGE DATE: 05/13/17 DIAGNOSES: 1. Unstable angina. 2. Coronary artery disease. 3. Percutaneous transluminal coronary angioplasty stent, vein graft to the right coronary artery and percutaneous transluminal coronary angioplasty for in-stent restenosis, vein graft to the left circumflex. 4. Hypertension. 5. Hyperlipidemia. 6. Smoking history. 7. Chronic obstructive pulmonary disease. HOSPITAL COURSE: Mr. Grant presents with anginal symptomatology, found to have disease in both vein grafts, underwent successful transcatheter revascularization of both, had an uneventful postop course. He was discharged home with the addition of aspirin and Plavix to his medical regimen. He will follow up with [facility] in 1 month. TRANSINT:[id number] Voice Confirmation ID: [id number] DOCUMENT ID: [id number] MILVIA CAMPBELL MD at 1656 CC: [id number] DICTATION DATE: 05/13/17 142 BRAILLE AND TALKING BOOKS CLERK: 05/13/17 2218 DEP CLI 05/13/17 [place] [id number] [place] [address]
== END 2017-05-13 18:21 | disposition home or self-care (01) ==
LOC: D.CATH 09:18 → D.M2 09:18 → D.CATH 12:00 → D.M2 12:59 → D.CATH 05-13 18:21
PROVIDERS: Internal Medicine Interventional Cardiology
DX: I25.119 Atherosclerotic heart disease of native coronary artery with unspecified angina pectoris (principal); R94.31 Abnormal electrocardiogram [ECG] [EKG]; I10 Essential (primary) hypertension; E78.5 Hyperlipidemia, unspecified; Z01.812 Encounter for preprocedural laboratory examination